=== PATIENT | female | born 1995 | race Two or more races ===

== ENCOUNTER 2022-12-14 01:08 | Emergency (ER) | payer MEDICAID ==
[~2022-12-14] VITALS: Ht 167.6 cm; Wt 92.0 kg
[2022-12-14 06:37] VITALS: BP 126/80
[2022-12-14] MEDS ORDERED: KETOROLAC TROMETH 60MG/2ML VIAL IM ONE (06:45)
[2022-12-14] MEDS ORDERED: HYDR-4902 PO (07:02)
[2022-12-14] MEDS ORDERED: IBUP800T26 PO (07:02)
== END 2022-12-14 07:11 | disposition home or self-care (01) ==
LOC: ER 01:08
DX: S16.1XXA Strain of muscle, fascia and tendon at neck level, initial encounter (principal); M79.10 Myalgia, unspecified site; V49.9XXA Car occupant (driver) (passenger) injured in unspecified traffic accident, initial encounter; Y93.89 Activity, other specified; Y92.89 Other specified places as the place of occurrence of the external cause; Y99.8 Other external cause status
CPT/HCPCS: 70450; 72125; 96372; 99285; J1885